=== PATIENT | female | born 1990 | race Caucasian/White ===

== ENCOUNTER 2018-11-13 18:05 | Emergency (ER) | payer OTHER ==
[~2018-11-13] VITALS: Ht 149.9 cm; Wt 61.8 kg
[2018-11-13 18:51] VITALS: Ht 149.9 cm; Wt 61.8 kg
[2018-11-13 20:30] VITALS: BP 125/79
== END 2018-11-13 20:30 | disposition home or self-care (01) ==
LOC: ED 18:05
DX: S01.91XA Laceration without foreign body of unspecified part of head, initial encounter (principal); W22.8XXA Striking against or struck by other objects, initial encounter; Y93.89 Activity, other specified; Y92.89 Other specified places as the place of occurrence of the external cause; Y99.8 Other external cause status
CPT/HCPCS: 90715